=== PATIENT | female | born 1960 ===

== ENCOUNTER 2018-09-27 12:02 | Emergency (ER) | payer OTHER ==
[2018-09-27 12:43] VITALS: PULSE 55; RESP 18; TEMP 98; O2SAT 99
[2018-09-27 12:44] VITALS: BP 173/83
--- NOTE | 2018-09-27 13:07 | ED PDOC ---
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 Patient reports that she was seen at onset in an [facility], but medications only provided transient relief, and the pain persists. Otherwise denies trauma, falls, and injury. PMD: none provided Past Medical History Reviewed: Historical Data, Nursing Documentation, Vital Signs Vital Signs: Last Vital Signs Temp 98 F 09/27/18 12:40 Pulse 55 L 09/27/18 12:40 Resp 18 09/27/18 12:40 BP 173/83 H 09/27/18 12:40 Pulse Ox 99 09/27/18 12:40 - Medical History PMH: Back Problems - Family History Family History: States: Unknown Family Hx - Social History Current smoker - smoking cessation education provided: No Alcohol: None Drugs: Denies - Home Medications Home Medications: Ambulatory Orders Medication Instructions Recorded Cyclobenzaprine [Flexeril] 10 mg PO TID #27 tab 09/27/18 Diclofenac Potassium 50 mg PO BID #20 tablet 09/27/18 - Allergies Allergies/Adverse Reactions: Allergies Allergy/AdvReac Type Severity Reaction Status Date / Time No Known Allergies Allergy Verified 09/27/18 12:39 Review of Systems ROS Statement: Except As Marked, All Systems Reviewed And Found Negative Musculoskeletal: Positive for: Back Pain (left sided lower back pain radiating into back of left leg) Physical Exam - Reviewed Nursing Documentation Reviewed: Yes Vital Signs Reviewed: Yes - Physical Exam Appears: Positive for: No Acute Distress Cardiovascular/Chest: Positive for: Regular Rate, Rhythm Respiratory: Positive for: Normal Breath Sounds. Negative for: Respiratory Distress Back: Positive for: Muscle Spasm (left paraspinal ), Other (left striaght leg raise: negative to 35 degrees; right straight leg raise: negative). Negative for: Vertebral Tenderness - ECG O2 Sat by Pulse Oximetry: 99 (RA) Pulse Ox Interpretation: Normal Medical Decision Making Medical Decision Making: Time: 1307 Initial Impression: sciatica Initial Plan: --U-preg --Flexeril 10mg PO --Toradol 60mg IM --Tylenol 650mg PO --Urinalysis --Reevaluation Patient educated on sciatic nerve pain and that this is a chronic condition which will require follow ups with a PMD or body technician/painter. Informed that she will be given pain medication today along with exercises to do at home, but needs to follow up with PMD referral. All questions answered at this time using chief lifestyle officer and patient verbalized agreement and understanding of her condition and plan. 1415 Patient reports improvement in sciatic pain and states she is feeling better. Reiterated need to follow up with PMD referral in one week for further evaluation of chronic condition. Patient verbalized agreement and is stable for discharge with script for diclofenac and exercises for home. Scribe Attestation: Documented by Katharine Orellana, acting as a scribe for David See PA-C. Provider Scribe Attestation: All medical record entries made by the Scribe were at my direction and personally dictated by me. I have reviewed the chart and agree that the record accurately reflects my personal performance of the history, physical exam, medical decision making, and the department course for this patient. I have also personally directed, reviewed, and agree with the discharge instructions and disposition. Disposition - Clinical Impression Clinical Impression: Sciatic nerve pain - Patient ED Disposition Is Patient to be Admitted: No Doctor Will See Patient In The: Office Counseled Patient/Family Regarding: Diagnosis, Need For Followup, Rx Given - Disposition Referrals: [facility] [Outside] Disposition: Routine/Home Disposition Time: 14:20 Condition: STABLE Prescriptions: Cyclobenzaprine [Flexeril] 10 mg PO TID #27 tab Diclofenac Potassium 50 mg PO BID #20 tablet Instructions: Sciatica (DC), Sciatica, Sciatica Exercises Forms: [employer] (Macedonian), [employer] (Croatian) Print Language: SWEDISH
[2018-09-27 13:41] LABS: SQUAMOUS EPITHIAL < 1 /hpf (0-5); URINE BACTERIA RARE (<OCC); URINE BILIRUBIN NEGATIVE (NEGATIVE); URINE BLOOD NEGATIVE (NEGATIVE); URINE CLARITY CLEAR (Clear); URINE COLOR STRAW (YELLOW); URINE GLUCOSE (UA) NEG (NEGATIVE); URINE LEUKOCYTE ESTERASE NEG Leu/uL (Negative); URINE PROTEIN NEGATIVE (NEGATIVE); URINE UROBILINOGEN 0.2-1.0 mg/dL (0.2-1.0)
== END 2018-09-27 14:53 | disposition home or self-care (01) ==
LOC: H.ER 12:02
DX: M54.32 Sciatica, left side (principal)
CPT/HCPCS: 81003; 81025; 96372; 99283; J1885

== ENCOUNTER 2018-10-18 12:12 | Emergency (ER) | payer OTHER ==
--- NOTE | 2018-10-18 14:05 | ED PDOC ---
HPI: General Adult Time Seen by Provider: 10/18/18 13:30 Chief Complaint (Nursing): Abdominal Pain Chief Complaint (Provider): Left hip pain, right knee pain History Per: Patient History/Exam Limitations: no limitations Additional Complaint(s): 58yo female with history of back problems, comes to ER reporting "deep pain" in her left hip, right knee pain, and right sided headache, which has been worsening over the past 3 days. Patient states the "symptoms are unrelated" but they all have worsened over the past 2 days. Patient denies any trauma, injury, fevers, change in vision. Also denies any weakness, numbness, or paresthesia. Patient was seen in this ER 1 week ago for similar pain which she states resolved; states she did not follow up with PMD . Past Medical History Reviewed: Historical Data, Nursing Documentation, Vital Signs Vital Signs: Last Vital Signs Temp 97.6 F 10/18/18 12:53 Pulse 66 10/18/18 12:53 Resp 16 10/18/18 12:53 BP 147/75 10/18/18 12:53 Pulse Ox 97 10/18/18 12:53 - Medical History PMH: Back Problems - Family History Family History: States: Unknown Family Hx - Immunization History Hx Tetanus Toxoid Vaccination: No Hx Influenza Vaccination: No Hx Pneumococcal Vaccination: No - Home Medications Home Medications: Ambulatory Orders Medication Instructions Recorded Cyclobenzaprine [Flexeril] 10 mg PO TID #27 tab 09/27/18 Diclofenac Potassium 50 mg PO BID #20 tablet 09/27/18 - Allergies Allergies/Adverse Reactions: Allergies Allergy/AdvReac Type Severity Reaction Status Date / Time No Known Allergies Allergy Verified 10/18/18 12:53 Review of Systems ROS Statement: Except As Marked, All Systems Reviewed And Found Negative Eyes: Negative for: Vision Change Musculoskeletal: Positive for: Other (left hip, right knee pain) Neurological: Positive for: Headache. Negative for: Weakness, Numbness, Dizziness Physical Exam - Reviewed Nursing Documentation Reviewed: Yes Vital Signs Reviewed: Yes - Physical Exam Appears: Positive for: Non-toxic, No Acute Distress Head Exam: Positive for: ATRAUMATIC, NORMAL INSPECTION, NORMOCEPHALIC Skin: Positive for: Normal Color Eye Exam: Positive for: EOMI, PERRL Neck: Positive for: Normal, Painless ROM, Supple Cardiovascular/Chest: Positive for: Regular Rate, Rhythm. Negative for: Tachycardia Respiratory: Positive for: Normal Breath Sounds. Negative for: Respiratory Distress Pulses-Dorsalis Pedis (L): 2+ Pulses-Dorsalis Pedis (R): 2+ Pulses-Radial (L): 2+ Pulses-Radial (R): 2+ Extremity: Positive for: Normal ROM (FROM of lower extremities), Tenderness (tenderness to lateral left hip), Other (right knee with negative drawer's test, negative lockman test; no swelling or erythema). Negative for: Pedal Edema, Calf Tenderness, Deformity, Swelling Neurological/Psych: Positive for: Awake, Alert, Symmetric/Intact Strength (5/5 strength bilateral lower extremities), Oriented (x 3). Negative for: Motor/Sensory Deficits - ECG O2 Sat by Pulse Oximetry: 97 (RA) Pulse Ox Interpretation: Normal Medical Decision Making Medical Decision Making: Right knee, left hip and right sided headache Plan: -- No indication for CT head study at this time -- IV Toradol and reglan given -- XR right knee and left hip ordered ScribeAttestation: Documented byCher Merlos, acting as a scribe for Elizabeth Temple MD. Provider ScribeAttestation: All medical record entries made by the Scribe were at my direction and personally dictated by me. I have reviewed the chart and agree that the record accurately reflects my personal performance of the history, physical exam, medical decision making, and the department course for this patient. I have also personally directed, reviewed, and agree with the discharge instructions and disposition. Disposition - Clinical Impression Clinical Impression: Hip pain, Sciatic nerve pain, Headache - Disposition Referrals: [facility] [Outside] Disposition: Routine/Home Disposition Time: 17:17 Condition: IMPROVED Additional Instructions: Follow up with outpatient clinic. Take Motrin or Tylenol for pain. Instructions: Sciatica, Hip Pain (DC), Headache, Adult (DC) Forms: [employer] (Ukrainian) Print Language: [place] IS[place]
[2018-10-18] MEDS ORDERED: Naproxen 500 MG TAB PO ONE (14:15)
--- NOTE | 2018-10-18 16:44 | RAD ---
Date of service: 10/18/2018 PROCEDURE: Right knee HISTORY: Pain. No history of recent/ related trauma provided. COMPARISON: None TECHNIQUE: Standard protocol for this study/examination. FINDINGS: Negative study for fracture No appreciable degenerative change. No joint effusion identified. No visualized, radiopaque loose bodies. IMPRESSION: Negative study.
--- NOTE | 2018-10-18 16:46 | RAD ---
Date of service: 10/18/2018 PROCEDURE: Pelvis and left hip HISTORY: Left hip pain COMPARISON: TECHNIQUE: Three views FINDINGS: There is no evidence of hip fracture. There is no significant joint space narrowing. There are no bony abnormalities IMPRESSION: Negative study
[2018-10-18 17:34] VITALS: BP 138/82; PULSE 85; RESP 18; TEMP 97.8
[2018-10-28 12:21] VITALS: O2SAT 97
== END 2018-10-18 17:20 | disposition home or self-care (01) ==
LOC: H.ER 12:12
DX: M25.552 Pain in left hip (principal); R51 Headache; M25.561 Pain in right knee